=== PATIENT | male | born 1955 | race Caucasian/White ===

== ENCOUNTER → 2016-11-04 | Outpatient (CLI) | payer BC ==
--- NOTE | 2016-11-04 07:35 | US ---
EXAMINATION TYPE: US abdomen complete DATE OF EXAM: 11/04/2016 7:20 AM COMPARISON: NONE CLINICAL HISTORY: epigastric pain, worse with some food, UGI to follow. EXAM MEASUREMENTS: Liver Length: 14.3cm Gallbladder Wall: 0.2cm CBD: 0.4cm Spleen: 8.6cm Right Kidney: 10.3 x 5.2 x 4.6cm Left Kidney: 10.8 x 5.2 x 6.5cm Findings: some exam limitations due to larger habitus and increased overlying bowel gas Pancreas: Obscured by bowel gas Liver: wnl Gallbladder: wnl Evidence for sonographic Hollis's sign: no CBD: wnl Spleen: wnl Right Kidney: wnl Left Kidney: wnl Upper IVC: Obscured by overlying bowel gas Abd Aorta: Obscured by overlying bowel gas The liver is homogenous. The intrahepatic portion of the IVC and proximal abdominal aorta are within normal limits. There is no evidence of cholelithiasis. Common bile duct is unremarkable. The visu alized portions of the pancreas are homogenous. The spleen is unremarkable. Kidneys are symmetric a nd free of hydronephrosis. No renal lesions are seen. IMPRESSION: Unremarkable study Normal Values: Liver Length: < 16cm wnl, 17-18cm upper limits, >18cm enlarged Spleen Length = < 13cm Renal Length = 9 - 12cm GB Wall: < 0.3cm CBD: < 0.6cm or < 1.0cm post cholecystectomy
--- NOTE | 2016-11-04 08:45 | FL ---
EXAMINATION TYPE: FL UGI DATE OF EXAM: 11/04/2016 8:23 AM COMPARISON: NONE HISTORY: Epigastric pain TECHNIQUE: A single/double contrast UGI study is performed. FINDINGS: Concrete Truck Driver image of the abdomen shows no gross abnormality. The esophagus shows normal motility and emptying into the stomach. No evidence of hiatal hernia or s tricture noted. The stomach shows normal distensibility, peristalsis, and mucosal folds. No evidence of any mass or ulcer disease. No significant gastroesophageal reflux was seen during real time performance of this study. The duodenal bulb, sweep, and proximal small bowel loops are unremarkable. IMPRESSION: Normal upper GI study.
== END | disposition home or self-care (01) ==
LOC: RADUSWWP 07:01
PROVIDERS: ATTEND Family Medicine
DX: R10.13 Epigastric pain (principal); Z90.49 Acquired absence of other specified parts of digestive tract
CPT/HCPCS: 74240; 76700

== ENCOUNTER → 2016-11-14 | Outpatient (CLI) | payer BC ==
--- NOTE | 2016-11-14 10:14 | FL ---
EXAMINATION TYPE: FL small bowel follow through DATE OF EXAM: 11/14/2016 9:50 AM COMPARISON: NONE HISTORY: Abdominal Pain The patient ingested thin liquid barium without difficulty. Small bowel follow-through was performed with transit time of 50 minutes. Small bowel loops appear to be of normal caliber and demonstrate n ormal mucosal fold pattern. No evidence for intrinsic or extrinsic mass. No evidence for mucosal ab normality. I do not see evidence for Crohn's disease. Normal-appearing terminal ileum. IMPRESSION: Unremarkable study
== END | disposition home or self-care (01) ==
LOC: RADFLMAIN 08:01
PROVIDERS: ATTEND Family Medicine
DX: R10.9 Unspecified abdominal pain (principal)
CPT/HCPCS: 74250

== ENCOUNTER 2017-01-13 07:58 | Day surgery (SDC) | payer BC ==
[2017-01-11 08:59] VITALS: BMI 31.3
[~2017-01-13 07:58] MED LIST: LACTATED RINGERS 1,000 ML IV SCH
[2017-01-13 08:24] VITALS: RESP 16
[2017-01-13] MEDS ORDERED: LIDOCAINE 1% 20 ML VIAL (10MG/ML) FOR IV START INTRADERMA ONE (08:36)
[2017-01-13 08:54] LABS: Glucose,Whole Blood 103 mg/dL (75-99)
[2017-01-13] MEDS ORDERED: PROPOFOL 10 MG/ML 20 ML VIAL IV ONE (09:04)
[2017-01-13] MEDS ORDERED: LIDOCAINE 1% INJ 10MG/ML (20 ML MDV) ONE (09:04)
[2017-01-13 09:44] VITALS: BP 125/76; PULSE 80
--- NOTE | 2017-01-13 10:08 | P.PCN ---
Date of Procedure: 01/13/17 Procedure(s) Performed: BRIEF HISTORY: Patient is a 61-year-old, pleasant, white male, scheduled for an elective upper endoscopy as a part of evaluation of epigastric and. Multiple abdominal pain for the last several months duration. He has occasional heartburn and takes Zantac as needed and doing well. PROCEDURE PERFORMED: Esophagogastroduodenoscopy with biopsy. PREOPERATIVE DIAGNOSIS: Epigastric and periumbilical abdominal pain IV sedation per anesthesia. PROCEDURE: After informed consent was obtained, the patient was brought into the endoscopy unit. IV conscious sedation was administered by Anesthesia under continuous monitoring. Initially the Olympus GIF-140 video endoscope was inserted into the mouth. Esophagus intubated without any difficulty. It was gradually advanced into the stomach and duodenum and carefully examined. The bulb and the second part of the duodenum appeared normal. Biopsies were done from this area to rule out celiac disease The scope at this time was withdrawn to the stomach, adequately insufflated with air, and upon careful examination, mucosa of the antrum had mild gastritis and biopsies were done from this area. The, body, cardia and the fundus appeared normal. The scope was then withdrawn into the esophagus. The GE junction was located at 39 cm from the incisors. The esophagus appeared normal. There were no erosions or ulcerations seen and the patient tolerated the procedure well. IMPRESSION: 1. Mild antral gastritis. 2. No evidence of esophagitis or peptic ulcer. RECOMMENDATIONS: The findings of this examination were discussed with the patient well as his family. He was advised to follow with the biopsy results. He was advised to continue with Zantac as needed and follow antireflux measures.
== END 2017-01-13 10:31 | disposition home or self-care (01) ==
LOC: ORWHC2ENDO 07:58
PROVIDERS: ATTEND Internal Medicine Gastroenterology
DX: K29.50 Unspecified chronic gastritis without bleeding (principal)
CPT/HCPCS: 88305; 88342; 43239; J2001; J2704

== ENCOUNTER → 2018-11-21 | Outpatient (CLI) | payer BC ==
--- NOTE | 2018-11-21 22:39 | MR ---
EXAMINATION TYPE: MR brain and iac wo/w con DATE OF EXAM: 11/21/2018 COMPARISON: NONE HISTORY: Dizziness/Tinnitus/ hearing loss TECHNIQUE: Multiplanar, multisequence images of the brain and brainstem as well as internal auditory canals are all performed without and with IV contrast, utilizing 9 mL intravenous Gadavist . FINDINGS: Diffusion weighted images demonstrate no evidence of a recent infarct or other diffusion ab normality. There is no extra-axial fluid collection or significant white matter signal abnormality. The ventricular system and cisternal spaces are normal in size and appearance. The brain volume is age appropriate. Midline structures demonstrate normal morphology. The craniocervical junction appears within normal limits. Post contrast images demonstrate no abnormal enhancement. The dural venous sinuses appear pa tent. The visualized sinuses are clear and the globes are intact. Normal suspicious fluid signal seen in mastoid air cells bilaterally. Vestibulocochlear complexes are symmetric and felt within normal limits. No suspicious enhancing cerebellopontine angle mass is iden tified bilaterally. IMPRESSION: . No suspicious finding is seen to account for patient's symptoms.
== END ==
LOC: RADMRIMAIN 15:41
PROVIDERS: ATTEND Otolaryngology
DX: H93.3X9 Disorders of unspecified acoustic nerve (principal); H93.19 Tinnitus, unspecified ear; H91.90 Unspecified hearing loss, unspecified ear
CPT/HCPCS: 82565; 70553; 36415; A9585

== ENCOUNTER → 2018-11-22 | Outpatient (CLI) | payer BC ==
--- NOTE | 2018-12-03 19:07 | ENG ---
ELECTRONYSTAGMOGRAM REPORT VIDEO-ASSISTED ELECTRONYSTAGMOGRAM: DATE OF SERVICE: 11/21/2018 VNG INDICATIONS: This is a 62-year-old male with dizziness that began in July 2018, gradual onset, overall improving, spells occurring 3 to 4 times a week, lasting 3 to 5 seconds at a time. Dizziness can occur with turning the head left or right. Bilateral hearing loss with ringing in the left ear of a steady humming nature with fullness in the left ear. VNG FINDINGS: Saccades shows intact peak velocities, accuracies and latencies. Gaze with fixation shows no nystagmus in any of the directions of gaze, including centrally with vision denied. Tracking shows no breakups. Optokinetic nystagmus shows no significant asymmetry at faster or slower speeds. Static position testing in 6 different positions tested with eyes open and then vision denied shows no nystagmus. Beaumont-Hallpike maneuvers are negative bilaterally. Caloric testing shows bilateral caloric weakness. IMPRESSION: Bilateral caloric weakness is detected and so unilateral vestibular weakness could not be determined. Other features of this VNG are unremarkable. There are no central nervous system findings. MMODL / IJN: [id number] /
== END | disposition home or self-care (01) ==
LOC: NEUROMAIN 09:18
PROVIDERS: ATTEND Otolaryngology
DX: R53.1 Weakness (principal)
CPT/HCPCS: 92537; 92540

== ENCOUNTER 2021-11-06 18:43 | Emergency (ER) | payer MEDICARE, BC ==
[2021-11-06] MEDS ORDERED: SODIUM CHLORIDE 0.9% 500 ML 500 ML IV STA (18:53)
[2021-11-06] MEDS ORDERED: DIPH,PERTUS(ACELL)TETVAC-LF 0.5 ML VIAL IM ONE (18:53)
--- NOTE | 2021-11-06 18:58 | ED ---
General Adult HPI - General Stated complaint: L thumb amputation Time Seen by Provider: 11/06/21 18:45 - History of Present Illness Initial comments: Dictation was produced using [employer] dictation software. please excuse any grammatical, word or spelling errors. Chief Complaint: 65-year-old male presents with amputation of the left thumb History of Present Illness: Patient's 65-year-old male presents to the emergency Department with amputation of the left thumb. Patient states at 520 was ice fishing he was utilizing an auger when he lost control and the auger and his left thumb got caught. He knows that his thumb was missing. EMS was called patient is brought to the emergency department. Patient has history of type 2 diabetes mellitus. He is not insulin-dependent. Patient's amputated thumb was placed and gauze and on cold pack prior to coming to the emergency department. Patient has no other complaints. The ROS documented in this emergency department record has been reviewed and confirmed by me. Those systems with pertinent positive or negative responses have been documented in the HPI. All other systems are other negative and/or noncontributory. PHYSICAL EXAM: General Impression: Alert and oriented x3, not in acute distress HEENT: Normocephalic atraumatic, extra-ocular movements intact, pupils equal and reactive to light bilaterally, mucous membranes moist. Cardiovascular: Heart regular rate and rhythm Chest: Able to complete full sentences, no retractions, no tachypnea Musculoskeletal: Pulses present and equal in all extremities, no peripheral edema Left hand: There is a amputation of the left thumb. There is amputation at the PIP joint with skin missing from the MCP joint to the PIP area. There is exposed bone. Motor: no focal deficits noted Neurological: CN II-XII grossly intact, no focal motor or sensory deficits noted Skin: Intact with no visualized rashes Psych: Normal affect and mood ED course: 65-year-old male presents with accidental amputation of left thumb after his hand got trapped in an auger. Vital signs upon arrival are within acceptable limits. Tetanus updated. Patient given 2 g of Ancef. Case is discussed with Dr. Hollis electrician telephone for city call or through surgery. He states that they do not have hand surgery available because a hand surgeon is out of town. Did speak with Dr. Pitts the hand surgeon from the other group. He reviewed the films and was told about patient's clinical presentation and states that patient is to be transferred to a center were there is plastic surgery availability given that there is significant skin loss. He will need a Lasix evaluation for a flap to cover the exposed bone to try and salvage his proximal phalanx of his left thumb. Dr. Singh feels that is worthwhile to transfer patient to [facility] for further care. Absolutely we are undergoing a pandemic and there is a lot of difficulties and delays with transferring patients to tertiary centers. hand x-ray shows amputation at the interphalangeal joint with no convincing evidence of fracture. Patient's proximal thumb was wrapped with moist gauze. Finally was able to speak with [facility] Dr. Heller who is willing to accept patient for ER to ER transfer. Patient is agreeable with plan. Patient be transferred via ambulance. Patient refusing any analgesics. - Related Data Home Medications Medication Instructions Recorded Confirmed Ranitidine HCl [Zantac] 150 mg PO DAILY PRN 01/11/17 01/13/17 Allergies Allergy/AdvReac Type Severity Reaction Status Date / Time No Known Allergies Allergy Verified 11/06/21 19:19 Review of Systems ROS Statement: Those systems with pertinent positive or pertinent negative responses have been documented in the HPI. ROS Other: All systems not noted in ROS Statement are negative. Past Medical History Past Medical History: Diabetes Mellitus Additional Past Medical History / Comment(s): having abdomen pain intermittent since Jun 2016,Diet controlled diabetes History of Any Multi-Drug Resistant Organisms: None Reported Past Surgical History: Hernia Repair, Orthopedic Surgery Additional Past Surgical History / Comment(s): lt inguinal hernia repair,Ganglion cyst removed from both hands, Colonoscopy. Past Anesthesia/Blood Transfusion Reactions: No Reported Reaction Past Alcohol Use History: None Reported Past Drug Use History: None Reported - Past Family History Father Family Medical History: No Reported History Mother Family Medical History: Cancer Additional Family Medical History / Comment(s): Skin Course Vital Signs 11/06/21 11/06/21 19:16 19:20 Temperature 98 F Pulse Rate 102 H 80 Respiratory 18 18 Rate Blood Pressure 129/78 129/78 O2 Sat by Pulse 98 100 Oximetry Disposition Clinical Impression: Amputation thumb Disposition: OTHER INSTITUTION NOT DEFINED Condition: Critical Referrals: Yonas Gomez DO [Primary Care Provider] - 1-2 days - Out of Hospital Transfer - Req. Specs Out of Hospital Transfer - Requested Specifics: Other Emergency Center ([facility])
--- NOTE | 2021-11-06 19:08 | XR ---
EXAMINATION TYPE: XR hand complete LT DATE OF EXAM: 11/06/2021 6:55 PM INDICATION: Patient age:Male; 65 years old; Reason for study: amputation; PH[facility]. COMPARISON: None TECHNIQUE: 3 views of the left hand were obtained. FINDINGS: There is amputation of the left first digit at the interphalangeal joint. No evidence of fr acture. Distal and proximal phalanges appear intact. Soft tissue defect is noted. IMPRESSION: Amputation of the left first digit at the interphalangeal joint. No convincing evidence of fracture.
[2021-11-06 19:18] VITALS: BP 129/78; RESP 18
[2021-11-06 19:24] VITALS: PULSE 80; TEMP 98
[2021-11-06 19:32] LABS: African American GFR (CKD) >90 (>60 ml/min/1.73 sqM); Anion Gap 10 mmol/L; Blood Urea Nitrogen 17 mg/dL (9-20); Calcium 9.3 mg/dL (8.4-10.2); Carbon Dioxide 25 mmol/L (22-30); Chloride 103 mmol/L (98-107); Glucose 130 mg/dL (74-99); Non-African American GFR(CKD) 87 (>60 ml/min/1.73 sqM); Potassium 3.7 mmol/L (3.5-5.1); Sodium 138 mmol/L (137-145)
[2021-11-06 19:34] LABS: Basophils # (A) 0.1 k/uL (0-0.2); Basophils % (A) 0 %; Eosinophils # (A) 0.2 k/uL (0-0.7); Eosinophils % (A) 1 %; HCT 45.6 % (39.0-53.0); HGB 14.7 gm/dL (13.0-17.5); Lymphocytes # (A) 2.1 k/uL (1.0-4.8); Lymphocytes % (A) 16 %; MCH 30.9 pg (25.0-35.0); MCHC 32.3 g/dL (31.0-37.0); MCV 95.7 fL (80.0-100.0); Mean Platelet Volume 8.3; Monocytes # (A) 0.6 k/uL (0-1.0); Monocytes % (A) 4 %; Neutrophils # (A) 10.4 k/uL (1.3-7.7); Neutrophils % (A) 77 %; Platelet Count 234 k/uL (150-450); RBC 4.77 m/uL (4.30-5.90); RDW 13.5 % (11.5-15.5); WBC 13.5 k/uL (3.8-10.6)
== END 2021-11-06 20:37 | disposition other institution (70) ==
LOC: EC 18:43
DX: S68.012A Complete traumatic metacarpophalangeal amputation of left thumb, initial encounter (principal); E11.9 Type 2 diabetes mellitus without complications; W27.0XXA Contact with workbench tool, initial encounter
CPT/HCPCS: 99285; 96365; 90471; 36415; 80048; 85025; 87635; 73130; 90715; J0690

== ENCOUNTER 2023-10-05 00:47 | Emergency (ER) | payer MEDICARE, BC ==
[2023-10-05 01:16] LABS: Basophils # (A) 0.1 k/uL (0-0.2); Basophils % (A) 1 %; Eosinophils # (A) 0.4 k/uL (0-0.7); Eosinophils % (A) 3 %; HCT 45.8 % (39.0-53.0); HGB 15.1 gm/dL (13.0-17.5); Lymphocytes % (A) 28 %; MCH 30.7 pg (25.0-35.0); MCHC 32.8 g/dL (31.0-37.0); MCV 93.6 fL (80.0-100.0); Mean Platelet Volume 8.5; Monocytes # (A) 0.6 k/uL (0-1.0); Monocytes % (A) 6 %; Neutrophils # (A) 6.5 k/uL (1.3-7.7); Neutrophils % (A) 60 %; Platelet Count 218 k/uL (150-450); RDW 13.1 % (11.5-15.5); WBC 10.7 k/uL (3.8-10.6)
--- NOTE | 2023-10-05 01:42 | ED ---
General Adult HPI - General Chief complaint: Chest Pain Stated complaint: hypertension Time Seen by Provider: 10/05/23 01:23 Source: patient, RN notes reviewed, old records reviewed Mode of arrival: ambulatory Limitations: no limitations - History of Present Illness Initial comments: 67-year-old male presenting for evaluation of elevated blood pressure. Patient states that he been monitoring his blood pressure over the past several days and his had some high readings. He has not been diagnosed with hypertension previously. He does have diabetes. He denies central chest pain but states he had some symptoms of indigestion. No focal numbness or weakness. No vomiting. - Related Data Home Medications Medication Instructions Recorded Confirmed Ranitidine HCl [Zantac] 150 mg PO DAILY PRN 01/11/17 01/13/17 Previous Rx's Medication Instructions Recorded amLODIPine [Norvasc] 2.5 mg PO DAILY #30 tablet 10/05/23 Allergies Allergy/AdvReac Type Severity Reaction Status Date / Time No Known Allergies Allergy Verified 10/05/23 00:52 Review of Systems ROS Statement: Those systems with pertinent positive or pertinent negative responses have been documented in the HPI. ROS Other: All systems not noted in ROS Statement are negative. Past Medical History Past Medical History: Diabetes Mellitus Additional Past Medical History / Comment(s): having abdomen pain intermittent since Jun 2016,Diet controlled diabetes History of Any Multi-Drug Resistant Organisms: None Reported Past Surgical History: Hernia Repair, Orthopedic Surgery Additional Past Surgical History / Comment(s): lt inguinal hernia repair,Ganglion cyst removed from both hands, Colonoscopy. Past Anesthesia/Blood Transfusion Reactions: No Reported Reaction Past Psychological History: No Psychological Hx Reported Smoking Status: Never smoker Past Alcohol Use History: None Reported Past Drug Use History: None Reported - Past Family History Father Family Medical History: No Reported History Mother Family Medical History: Cancer Additional Family Medical History / Comment(s): Skin General Exam Limitations: no limitations General appearance: alert, in no apparent distress Head exam: Present: atraumatic, normocephalic Eye exam: Present: normal appearance, PERRL ENT exam: Present: normal exam Neck exam: Present: normal inspection. Absent: tenderness, meningismus Respiratory exam: Present: normal lung sounds bilaterally. Absent: respiratory distress, wheezes Cardiovascular Exam: Present: regular rate, normal rhythm GI/Abdominal exam: Present: soft. Absent: distended, tenderness, guarding Neurological exam: Present: alert, oriented X3, CN II-XII intact. Absent: motor sensory deficit Psychiatric exam: Present: normal affect, normal mood Skin exam: Present: warm, dry, intact. Absent: cyanosis, diaphoretic Course Vital Signs 10/05/23 10/05/23 10/05/23 00:48 01:46 01:48 Temperature 98.0 F Pulse Rate 106 H 104 H Pulse Rate [ 104 H Nut Tapper ] Respiratory 20 18 Rate Blood Pressure 194/102 165/105 O2 Sat by Pulse 95 98 Oximetry 10/05/23 02:46 Temperature Pulse Rate 99 Pulse Rate [ Nut Tapper ] Respiratory 12 Rate Blood Pressure 159/98 O2 Sat by Pulse 97 Oximetry Medical Decision Making - Medical Decision Making Was pt. sent in by a medical professional or institution (, PA, SURFACE HYDROLOGIST, urgent care, hospital, or intermediate...) When possible be specific @ -No Did you speak to anyone other than the patient for history (EMS, parent, family, police, friend...)? What history was obtained from this source @ -No Did you review nursing and triage notes (agree or disagree)? Why? @ -I reviewed and agree with nursing and triage notes Were old charts reviewed (outside hosp., previous admission, EMS record, old EKG, old radiological studies, urgent care reports/EKG's, intermediate records)? Report findings @ -No old charts were reviewed Differential Diagnosis (chest pain, altered mental status, abdominal pain women, abdominal pain men, vaginal bleeding, weakness, fever, dyspnea, syncope, headache, dizziness, GI bleed, back pain, seizure, CVA, palpatations, mental health, musculoskeletal)? @Hypertensive emergency, hypertensive urgency, hypertension EKG interpreted by me (3pts min.). @ Sinus rhythm rate of 98, MO interval 156, QRS duration 101, QTC 397, T-wave inversion in the inferior leads X-rays interpreted by me (1pt min.). @ -Normal cardiac silhouette, no CT interpreted by me (1pt min.). @ -None done U/S interpreted by me (1pt. min.). @ -None done What testing was considered but not performed or refused? (CT, X-rays, U/S, labs)? Why? @ -None What meds were considered but not given or refused? Why? @ -None Did you discuss the management of the patient with other professionals (professionals i.e. , PA, SURFACE HYDROLOGIST, lab, RT, psych nurse, director social, test engine operator, te acher, promotions officer, assistant case manager)? Give summary @ -No Was smoking cessation discussed for >3mins.? @ -No Was critical care preformed (if so, how long)? @ -No Were there social determinants of health that impacted care today? How? (Homelessness, low income, unemployed, alcoholism, drug addiction, transportation, low edu. Level, literacy, decrease access to med. care, usp, rehab)? @ -No Was there de-escalation of care discussed even if they declined (Discuss DNR or withdrawal of care, Hospice)? DNR status @ -No What co-morbidities impacted this encounter? (DM, HTN, Smoking, COPD, CAD, Cancer, CVA, ARF, Chemo, Hep., AIDS, mental health diagnosis, sleep apnea, morbid obesity)? @Diabetes Was patient admitted / discharged? Hospital course, mention meds given and ro blackfeet, prescriptions, significant lab abnormalities, going to OR and other pertinent info. @ -[67-year-old male who had presented for evaluation of elevated blood pressure. Patient reported a vague chest discomfort, no severe chest pain. No dyspnea. Patient is in sinus rhythm. Chest x-ray is clear. He has normal CBC, normal CMP, negative troponin. Patient's blood pressure is down trending in the emergency department. He will monitor symptoms and follow closely with primary care provider. Return parameters discussed. Undiagnosed new problem with uncertain prognosis? @ -No Drug Therapy requiring intensive monitoring for toxicity (Heparin, Nitro, Insulin, Cardizem)? @ -No Were any procedures done? @ -No Diagnosis/symptom? @ -Hypertension Acute, or Chronic, or Acute on Chronic? @ -Acute Uncomplicated (without systemic symptoms) or Complicated (systemic symptoms)? @ -default Side effects of treatment? @ -No Exacerbation, Progression, or Severe Exacerbation? @ -No Poses a threat to life or bodily function? How? (Chest pain, [place], [place], pneumonia, PE, COPD, DKA, ARF, appy, cholecystitis, CVA, Diverticulitis, Homicidal, Suicidal, threat to staff... and all critical care pts) @Low risk at this time - Lab Data Result diagrams: 10/05/23 00:54 10/05/23 00:54 Lab Results 10/05/23 10/05/23 10/05/23 Range/Units 00:54 00:54 00:54 WBC 10.7 H (3.8-10.6) k/uL RBC 4.90 (4.30-5.90) m/uL Hgb 15.1 (13.0-17.5) gm/dL Hct 45.8 (39.0-53.0) % MCV 93.6 (80.0-100.0) fL MCH 30.7 (25.0-35.0) pg MCHC 32.8 (31.0-37.0) g/dL RDW 13.1 (11.5-15.5) % Plt Count 218 (150-450) k/uL MPV 8.5 Neutrophils % 60 % Lymphocytes % 28 % Monocytes % 6 % Eosinophils % 3 % Basophils % 1 % Neutrophils # 6.5 (1.3-7.7) k/uL Lymphocytes # 3.0 (1.0-4.8) k/uL Monocytes # 0.6 (0-1.0) k/uL Eosinophils # 0.4 (0-0.7) k/uL Basophils # 0.1 (0-0.2) k/uL PT 10.8 (10.0-12.5) sec INR 1.0 (<1.2) APTT 24.5 (22.0-30.0) sec Sodium 141 (137-145) mmol/L Potassium 3.6 (3.5-5.1) mmol/L Chloride 104 (98-107) mmol/L Carbon Dioxide 22 (22-30) mmol/L Anion Gap 15 mmol/L BUN 15 (9-20) mg/dL Creatinine 1.02 (0.66-1.25) mg/dL Est GFR (CKD-EPI)AfAm 88 (>60 ml/min/1.73 sqM) Est GFR (CKD-EPI)NonAf 76 (>60 ml/min/1.73 sqM) Glucose 121 H (74-99) mg/dL Calcium 9.5 (8.4-10.2) mg/dL Magnesium 1.9 (1.6-2.3) mg/dL Total Bilirubin 0.5 (0.2-1.3) mg/dL AST 30 (17-59) U/L ALT 42 (4-49) U/L Alkaline Phosphatase 85 (38-126) U/L Troponin I (0.000-0.034) ng/mL Total Protein 7.3 (6.3-8.2) g/dL Albumin 4.6 (3.5-5.0) g/dL 10/05/23 Range/Units 00:54 WBC (3.8-10.6) k/uL RBC (4.30-5.90) m/uL Hgb (13.0-17.5) gm/dL Hct (39.0-53.0) % MCV (80.0-100.0) fL MCH (25.0-35.0) pg MCHC (31.0-37.0) g/dL RDW (11.5-15.5) % Plt Count (150-450) k/uL MPV Neutrophils % % Lymphocytes % % Monocytes % % Eosinophils % % Basophils % % Neutrophils # (1.3-7.7) k/uL Lymphocytes # (1.0-4.8) k/uL Monocytes # (0-1.0) k/uL Eosinophils # (0-0.7) k/uL Basophils # (0-0.2) k/uL PT (10.0-12.5) sec INR (<1.2) APTT (22.0-30.0) sec Sodium (137-145) mmol/L Potassium (3.5-5.1) mmol/L Chloride (98-107) mmol/L Carbon Dioxide (22-30) mmol/L Anion Gap mmol/L BUN (9-20) mg/dL Creatinine (0.66-1.25) mg/dL Est GFR (CKD-EPI)AfAm (>60 ml/min/1.73 sqM) Est GFR (CKD-EPI)NonAf (>60 ml/min/1.73 sqM) Glucose (74-99) mg/dL Calcium (8.4-10.2) mg/dL Magnesium (1.6-2.3) mg/dL Total Bilirubin (0.2-1.3) mg/dL AST (17-59) U/L ALT (4-49) U/L Alkaline Phosphatase (38-126) U/L Troponin I <0.012 (0.000-0.034) ng/mL Total Protein (6.3-8.2) g/dL Albumin (3.5-5.0) g/dL Disposition Clinical Impression: Hypertension Disposition: HOME SELF-CARE Condition: Good Instructions (If sedation given, give patient instructions): Hypertension (ED) Prescriptions: amLODIPine [Norvasc] 2.5 mg PO DAILY #30 tablet Is patient prescribed a controlled substance at d/c from ED?: No Referrals: Yonas Gomez DO [Primary Care Provider] - 1-2 days Time of Disposition: 03:26
--- NOTE | 2023-10-05 02:15 | XR ---
EXAM: XR Chest, 2 Views CLINICAL HISTORY: Chest Pain TECHNIQUE: Frontal and lateral views of the chest. COMPARISON: No relevant prior studies available. FINDINGS: Lungs: No focal consolidation. The pulmonary vasculature demonstrates no significant radiographic abnormality. Pleural space: Unremarkable. No pneumothorax. No large pleural effusion. Heart: Unremarkable. No cardiomegaly. Mediastinum: Unremarkable. No significant abnormality identified. The trachea is midline. Bones/joints: Unremarkable. No acute fracture. IMPRESSION: No focal consolidation or acute cardiopulmonary process identified.
[2023-10-05 02:42] LABS: Partial Thromboplastin Time 24.5 sec (22.0-30.0); Prothrombin Time 10.8 sec (10.0-12.5)
[2023-10-05 03:09] VITALS: RESP 12
[2023-10-05 03:18] LABS: ALT 42 U/L (4-49); AST 30 U/L (17-59); African American GFR (CKD) 88 (>60 ml/min/1.73 sqM); Albumin 4.6 g/dL (3.5-5.0); Alkaline Phosphatase 85 U/L (38-126); Anion Gap 15 mmol/L; Blood Urea Nitrogen 15 mg/dL (9-20); Calcium 9.5 mg/dL (8.4-10.2); Carbon Dioxide 22 mmol/L (22-30); Chloride 104 mmol/L (98-107); Glucose 121 mg/dL (74-99); Magnesium 1.9 mg/dL (1.6-2.3); Non-African American GFR(CKD) 76 (>60 ml/min/1.73 sqM); Potassium 3.6 mmol/L (3.5-5.1); Sodium 141 mmol/L (137-145); Total Bilirubin 0.5 mg/dL (0.2-1.3); Total Protein 7.3 g/dL (6.3-8.2)
[2023-10-05 03:54] VITALS: BP 152/95; PULSE 92; TEMP 97.9
== END 2023-10-05 03:40 | disposition home or self-care (01) ==
LOC: EC 00:47
DX: I10 Essential (primary) hypertension (principal); E11.9 Type 2 diabetes mellitus without complications; Z79.899 Other long term (current) drug therapy; Z20.822 Contact with and (suspected) exposure to COVID-19
CPT/HCPCS: 36415; 71046; 80053; 83735; 84484; 85025; 85610; 85730; 87636; 93005; 99285